=== PATIENT | female | born 1970 | race African-American/Black ===

== ENCOUNTER 2018-09-04 09:10 | Emergency (ER) | payer BC, OTHER ==
[~2018-09-04] VITALS: Ht 175.3 cm; Wt 110.7 kg
[~2018-09-04 09:10] MED LIST: BENADRYL25 MG PO; CYCLOBENZAPRINE5 MG PO; FLOMAX0.4 MG PO; GERITOL TONIC118 ML PO; IBUPROFEN 600600 M1 PO; METROGEL-VAGINA70 GM VAG; PREDNISONE 20 M20 MG PO; SRONYX1 EACH PO; ZANTAC 150MG T150 M1 PO
[2018-09-04 09:41] LABS: URINE CLARITY CLOUDY; URINE COLOR RED
[2018-09-04 09:42] LABS: URINE GLUCOSE-RANDOM* NEGATIVE (Negative); URINE PROTEIN (DIPSTICK) TRACE (Negative); URINE SPECIFIC GRAVITY >= 1.030 (1.005-1.035)
[2018-09-04 09:43] LABS: URINE KETONES NEGATIVE (Negative)
[2018-09-04 09:44] LABS: ICTOTEST (BILI CONFIRMATORY) Negative (Negative); URINE BILIRUBIN NEGATIVE (Negative); URINE BLOOD 3+ (Negative); URINE LEUKOCYTES-REFLEX NEGATIVE (Negative); URINE NITRITE-REFLEX NEGATIVE (Negative); URINE UROBILINOGEN 0.2 E.U./dl (0.2-1.0)
[2018-09-04 09:48] LABS: BACTERIA-REFLEX 1-9 Few /HPF (None Seen); CASTS None Seen /LPF (None Seen); CRYSTALS None Seen /LPF (None Seen); SQUAMOUS 0-3 Few /LPF (0-3); URINE RBC >20 Many /HPF (0-2); URINE WBC-REFLEX 0-5 Rare /HPF (0-5)
[2018-09-04 10:36] LABS: HEMATOCRIT 41.6 % (37.0-47.0); HEMOGLOBIN 13.7 gm/dL (12.0-15.0); MCH 28.9 pg (26.0-34.0); MCV 87.4 fL (80.0-100.0); PLATELET COUNT 282 thou/uL (150-400); RBC 4.76 mil/uL (4.20-5.00); RDW 14.5 % (10.5-14.5); WBC 3.8 thou/uL (4.0-11.0)
[2018-09-04 10:44] LABS: CALCIUM 8.4 mg/dL (8.5-10.1); CREATININE 0.9 mg/dL (0.6-1.0); POTASSIUM 3.9 mmol/L (3.5-5.1)
[2018-09-04 10:49] LABS: ALBUMIN 3.3 g/dL (3.4-5.0); TOTAL BILIRUBIN 0.3 mg/dL (<0.1-1.0); TOTAL PROTEIN 7.5 g/dL (6.4-8.2)
[2018-09-04] MEDS ORDERED: ZOFRAN ODT4 MG PO (11:35)
[2018-09-04] MEDS ORDERED: CEPACOL SORE T1 EAC7 PO (11:35)
[2018-09-04] MEDS ORDERED: AMOXICILLIN 50500 MG PO (11:35)
[2018-09-04] MEDS ORDERED: KEFLEX500 M1 PO (12:01)
[2018-09-04 12:07] VITALS: BP 146/92
[2018-09-04 12:24] LABS: ANISOCYTOSIS SLIGHT; ATYPICAL LYMPHS 4 %
== END 2018-09-04 12:08 | disposition home or self-care (01) ==
LOC: ER 09:10
PROVIDERS: Physician Assistant
DX: J02.8 Acute pharyngitis due to other specified organisms (principal); B97.89 Other viral agents as the cause of diseases classified elsewhere; N39.0 Urinary tract infection, site not specified; G43.909 Migraine, unspecified, not intractable, without status migrainosus; R19.7 Diarrhea, unspecified; Z88.1 Allergy status to other antibiotic agents; Z88.5 Allergy status to narcotic agent; Z88.8 Allergy status to other drugs, medicaments and biological substances

== ENCOUNTER 2018-11-13 15:31 | Emergency (ER) | payer BC, OTHER ==
[~2018-11-13] VITALS: Ht 175.3 cm; Wt 111.1 kg
[~2018-11-13 15:31] MED LIST changes: +AMOXICILLIN 50500 MG PO; +CEPACOL SORE T1 EAC7 PO; +KEFLEX500 M1 PO; +ZOFRAN ODT4 MG PO
[2018-11-13 16:02] LABS: URINE BILIRUBIN NEGATIVE (Negative); URINE BLOOD NEGATIVE (Negative); URINE CLARITY CLEAR; URINE COLOR YELLOW; URINE GLUCOSE-RANDOM* NEGATIVE (Negative); URINE KETONES NEGATIVE (Negative); URINE LEUKOCYTES NEGATIVE (Negative); URINE NITRITE NEGATIVE (Negative); URINE PROTEIN (DIPSTICK) NEGATIVE (Negative); URINE SPECIFIC GRAVITY 1.025 (1.005-1.035); URINE UROBILINOGEN 0.2 E.U./dl (0.2-1.0)
[2018-11-13] MEDS ORDERED: LUTERA1 EACH PO (16:04)
[2018-11-13] MEDS ORDERED: MACROBID 100 M100 M2 PO (16:05)
[2018-11-13] MEDS ORDERED: SPIRONOLACTONE25 M1 PO (16:05)
[2018-11-13 16:23] LABS: ABSOLUTE NEUTROPHILS 2.8 thou/uL (1.4-8.2); BASOPHILS 0.2 % (0.0-2.0); EOSINOPHILS 3.8 % (0.0-3.0); HEMATOCRIT 37.3 % (37.0-47.0); HEMOGLOBIN 12.4 gm/dL (12.0-15.0); LYMPHOCYTES 29.9 % (24.0-44.0); MCH 29.1 pg (26.0-34.0); MCHC 33.3 g/dL (28.0-37.0); MCV 87.5 fL (80.0-100.0); MONOCYTES 10.7 % (1.0-8.0); PLATELET COUNT 304 thou/uL (150-400); POLYS 55.4 % (36.0-66.0); RBC 4.27 mil/uL (4.20-5.00); RDW 13.7 % (10.5-14.5); WBC 5.1 thou/uL (4.0-11.0)
[2018-11-13 16:33] LABS: CALCIUM 8.1 mg/dL (8.5-10.1); CREATININE 0.9 mg/dL (0.6-1.0); POTASSIUM 3.8 mmol/L (3.5-5.1)
[2018-11-13 16:38] LABS: ALBUMIN 3.3 g/dL (3.4-5.0); TOTAL BILIRUBIN 0.3 mg/dL (<0.1-1.0); TOTAL PROTEIN 6.7 g/dL (6.4-8.2)
[2018-11-13 17:00] VITALS: BP 136/96
== END 2018-11-13 17:18 ==
LOC: ER 15:31
PROVIDERS: Emergency Medicine
DX: R10.9 Unspecified abdominal pain (principal); M62.830 Muscle spasm of back; R11.2 Nausea with vomiting, unspecified; G43.909 Migraine, unspecified, not intractable, without status migrainosus; I10 Essential (primary) hypertension; Z88.1 Allergy status to other antibiotic agents; Z88.5 Allergy status to narcotic agent; Z88.8 Allergy status to other drugs, medicaments and biological substances

== ENCOUNTER 2019-06-30 16:35 | Emergency (ER) | payer BC, OTHER ==
[~2019-06-30] VITALS: Ht 175.3 cm; Wt 133.4 kg
[~2019-06-30 16:35] MED LIST changes: +LUTERA1 EACH PO; +MACROBID 100 M100 M2 PO; +SPIRONOLACTONE25 M1 PO
[2019-06-30] MEDS ORDERED: FLONASE 0.05%50 MCG NARES (16:57)
[2019-06-30 17:11] LABS: URINE BILIRUBIN NEGATIVE (Negative); URINE BLOOD NEGATIVE (Negative); URINE CLARITY CLEAR; URINE COLOR YELLOW; URINE GLUCOSE-RANDOM* NEGATIVE (Negative); URINE KETONES NEGATIVE (Negative); URINE LEUKOCYTES-REFLEX NEGATIVE (Negative); URINE NITRITE-REFLEX NEGATIVE (Negative); URINE PROTEIN (DIPSTICK) NEGATIVE (Negative); URINE UROBILINOGEN 0.2 E.U./dl (0.2-1.0)
[2019-06-30 17:45] LABS: ABSOLUTE NEUTROPHILS 4.1 thou/uL (1.4-8.2); BASOPHILS 1.5 % (0.0-2.0); EOSINOPHILS 2.1 % (0.0-3.0); HEMATOCRIT 41.6 % (37.0-47.0); HEMOGLOBIN 13.5 gm/dL (12.0-15.0); LYMPHOCYTES 24.9 % (24.0-44.0); MCH 29.3 pg (26.0-34.0); MCHC 32.4 g/dL (28.0-37.0); MCV 90.6 fL (80.0-100.0); MONOCYTES 9.4 % (1.0-8.0); PLATELET COUNT 318 thou/uL (150-400); POLYS 62.1 % (36.0-66.0); RDW 13.6 % (10.5-14.5); WBC 6.6 thou/uL (4.0-11.0)
[2019-06-30 17:52] LABS: CALCIUM 9.1 mg/dL (8.5-10.1); POTASSIUM 3.8 mmol/L (3.5-5.1)
[2019-06-30 17:59] LABS: ALBUMIN 3.4 g/dL (3.4-5.0); TOTAL BILIRUBIN 0.3 mg/dL (<0.1-1.0); TOTAL PROTEIN 7.4 g/dL (6.4-8.2)
[2019-06-30] MEDS ORDERED: NAPROSYN500 MG PO (18:55)
[2019-06-30] MEDS ORDERED: TRAMADOL 50 MG50 MG PO (18:55)
[2019-06-30 19:27] VITALS: BP 147/87
== END 2019-06-30 19:40 | disposition home or self-care (01) ==
LOC: ER 16:35
PROVIDERS: Emergency Medicine
DX: R10.9 Unspecified abdominal pain (principal); G43.909 Migraine, unspecified, not intractable, without status migrainosus; I10 Essential (primary) hypertension; Z98.890 Other specified postprocedural states; Z88.1 Allergy status to other antibiotic agents; Z88.8 Allergy status to other drugs, medicaments and biological substances; Z88.5 Allergy status to narcotic agent